=== PATIENT | female | born 1940 | race Caucasian/White ===

== ENCOUNTER 2017-05-19 09:10 | Emergency (ER) | payer OTHER, MEDICARE ==
[~2017-05-19] VITALS: Ht 175.3 cm; Wt 63.5 kg
[2017-05-19] MEDS ORDERED: SPIRIVA INH (10:10)
[2017-05-19] MEDS ORDERED: UNICOMPLEX M TA1 TA1 PO (10:10)
[2017-05-19] MEDS ORDERED: KLOR-CON 1010 MEQ PO (10:11)
[2017-05-19] MEDS ORDERED: ASPIR 8181 MG PO (10:11)
[2017-05-19] MEDS ORDERED: LOTENSIN20 MG PO (10:11)
[2017-05-19] MEDS ORDERED: VITAMIN D1000 UNI1 PO (10:11)
[2017-05-19] MEDS ORDERED: PRILOSEC 20 MG20 MG PO (10:12)
[2017-05-19] MEDS ORDERED: SYMBICORT160 MCG/4. INH (10:12)
[2017-05-19] MEDS ORDERED: ALTOPREV40 M1 PO (10:12)
[2017-05-19 10:30] LABS: ABSOLUTE NEUTROPHILS 5.2 thou/uL (1.4-8.2); BASOPHILS 0.6 % (0.0-2.0); EOSINOPHILS 1.4 % (0.0-3.0); HEMATOCRIT 39.5 % (37.0-47.0); HEMOGLOBIN 13.3 gm/dL (12.0-15.0); LYMPHOCYTES 10.7 % (24.0-44.0); MCH 28.8 pg (26.0-34.0); MCHC 33.6 g/dL (28.0-37.0); MCV 85.6 fL (80.0-100.0); MONOCYTES 8.2 % (1.0-8.0); PLATELET COUNT 193 thou/uL (150-400); POLYS 79.1 % (36.0-66.0); RBC 4.61 mil/uL (4.20-5.00); RDW 14.6 % (10.5-14.5); WBC 6.6 thou/uL (4.0-11.0)
[2017-05-19 10:44] LABS: CALCIUM 9.5 mg/dL (8.5-10.1); CREATININE 0.8 mg/dL (0.6-1.0); POTASSIUM 3.5 mmol/L (3.5-5.1)
[2017-05-19 10:47] LABS: ALBUMIN 3.2 g/dL (3.4-5.0); TOTAL BILIRUBIN 0.6 mg/dL (<0.1-1.0)
[2017-05-19 11:17] LABS: URINE BILIRUBIN NEGATIVE (Negative); URINE BLOOD 1+ (Negative); URINE CLARITY CLEAR; URINE COLOR YELLOW; URINE GLUCOSE-RANDOM* NEGATIVE (Negative); URINE KETONES NEGATIVE (Negative); URINE LEUKOCYTES-REFLEX NEGATIVE (Negative); URINE NITRITE-REFLEX NEGATIVE (Negative); URINE PROTEIN (DIPSTICK) NEGATIVE (Negative); URINE SPECIFIC GRAVITY 1.015 (1.005-1.035); URINE UROBILINOGEN 0.2 E.U./dl (0.2-1.0)
[2017-05-19 11:27] LABS: BACTERIA-REFLEX 1-9 Few /HPF (None Seen); CASTS None Seen /LPF (None Seen); CRYSTALS None Seen /LPF (None Seen); SQUAMOUS 0-3 Few /LPF (0-3); URINE RBC 3-10 Few /HPF (0-2); URINE WBC-REFLEX None Seen /HPF (0-5)
== END 2017-05-19 12:50 | disposition home or self-care (01) ==
LOC: ER 09:10
PROVIDERS: Physician Assistant
DX: K52.1 Toxic gastroenteritis and colitis (principal); T36.0X5A Adverse effect of penicillins, initial encounter; Y92.9 Unspecified place or not applicable; Z88.5 Allergy status to narcotic agent

== ENCOUNTER → 2017-05-23 | Outpatient (CLI) | payer OTHER, MEDICARE ==
[~2017-05-23] MED LIST: ALTOPREV40 M1 PO; ASPIR 8181 MG PO; KLOR-CON 1010 MEQ PO; LOTENSIN20 MG PO; PRILOSEC 20 MG20 MG PO; SPIRIVA INH; SYMBICORT160 MCG/4. INH; UNICOMPLEX M TA1 TA1 PO; VITAMIN D1000 UNI1 PO
== END ==
LOC: RAD 12:45
DX: J44.9 Chronic obstructive pulmonary disease, unspecified (principal); Z88.2 Allergy status to sulfonamides; Z88.7 Allergy status to serum and vaccine; Z88.5 Allergy status to narcotic agent

== ENCOUNTER → 2018-05-29 | Outpatient (CLI) | payer OTHER, MEDICARE ==
[2018-05-29 09:33] LABS: CREATININE 0.8 mg/dL (0.6-1.0)
== END ==
LOC: CAT 09:02
PROVIDERS: Family Medicine
DX: K44.9 Diaphragmatic hernia without obstruction or gangrene (principal); K76.9 Liver disease, unspecified; Z90.49 Acquired absence of other specified parts of digestive tract